=== PATIENT | female | born 1965 | race Caucasian/White ===

== ENCOUNTER 2017-04-14 19:47 | Emergency (ER) | payer OTHER ==
--- NOTE | 2017-04-14 21:56 | ED CLINICAL REPORT ---
Clinical Report - Physicians/Mid Levels [facility] [address] [place] [address] 04/14/2017 19:50 Patient: KURT CHASE Time Seen: 1998; upon arrival, initial patient contact, initial documentation, patient care assumed. Arrived- By private vehicle. Historian- patient. HISTORY OF PRESENT ILLNESS Chief Complaint: LOWER EXTREMITY PAIN and SWELLING. Not relieved by anything- worsened by walking. Severity is described as being mild. The quality is noted to be "pain". It is described as radiating to the right calf. This started about 3 days ago and is still present. It was abrupt in onset and has been constant. Symptoms located in the area of the right foot. The patient has had swelling, but not had redness. No difficulty walking. No bladder dysfunction, bowel dysfunction, sensory loss or motor loss. Patient denies an injury. Similar symptoms previously: None. Recent medical care: The patient was seen recently in a clinic. ( went to clinic travel pta, sent here to r/o clot). REVIEW OF SYSTEMS No chest pain or difficulty breathing. All systems otherwise negative, except as recorded above. PAST HISTORY See nurses notes. ( PROBLEMS: Depression. --20:01 Wendy Espino. ADDITIONAL SURGERIES: Left wrist surgey . --20:01 Wendy Espino.). SOCIAL HISTORY Former smoker. Occasional alcohol use. No drug use. No recent travel. Is a local resident. FAMILY HISTORY Other family history (blood clot) in first-degree relative (mother). ADDITIONAL NOTES The nursing notes have been reviewed with agreement regarding the chief complaint, HPI, ROS, PMH and patient medications and allergies. PHYSICAL EXAM Vital Signs: 04/14/2017 19:57 BP: 175/81. HR: 88. RR: 20. O2 saturation: 95%. Temp: 98.5 F. Pain level now: 3/10. Have been reviewed as normal and appear to be correct. Appearance: Alert. Oriented X3. No acute distress. Eyes: Pupils equal, round and reactive to light. Eyes normal inspection. Neck: Normal inspection. Neck supple. CVS: Normal heart rate and rhythm. Heart sounds normal. Respiratory: No respiratory distress. Breath sounds normal. Back: Normal inspection. No tenderness. ROM normal. Skin: Skin intact. Skin warm and dry. Normal skin color. Normal skin turgor. Extremities: Right foot: mild swelling. Neurovascular intact distally. (entire foot swollen). No erythema, tenderness, laceration, abrasion or ecchymosis. No puncture wound, foreign body or deformity. No localization of findings or limitation of weight bearing. Lower extremities exhibit normal ROM. Lower extremity edema present. Mild right-sided calf tenderness. Extremities otherwise negative. Gait: Abnormal gait. Gait not tested due to pain. Neuro: Oriented X 3. No motor deficit. No sensory deficit. LABS, X-RAYS, AND EKG Lower Extremity Sonography: Negative study. verbal report from [facility] [place], no dvt, normal US. Interpretation time: 2124. Laboratory Tests: Serum Qualitative: (AZAEL: 04/14/2017 20:15) ( [facility] 04/14/2017 20:36) Final results Test Result Flag Units (Reference) , SERUM NEGATIVE CBC w Diff: (AZAEL: 04/14/2017 20:15) ( [facility] [place]/14/2017 20:26) Final results Test Result Flag Units (Reference) WHITE BLOOD COUNT 6.7 K/uL (4.5-11.5) RED BLOOD COUNT 3.91 L M/uL (4.00-5.20) HEMOGLOBIN 12.1 gm/dL (12.0-16.0) HEMATOCRIT 35.6 L % (36.0-46.0) MEAN CELL VOLUME 91 fL (80-100) MEAN CORPUSCULAR HGB 31 pg (26-34) MEAN CORPUSCULAR HGB CONC 34 g/dL (31-37) RED CELL DISTRIBUTION WIDTH 13.2 % (11.6-14.8) PLATELET COUNT 326 K/uL (150-400) NEUTROPHIL % 59.5 % (50-75) LYMPH % 29.2 % (25-40) MONO % 7.7 % (3-14) EOSINOPHIL % 2.5 % (0-4) BASOPHIL % 1.1 % (0-2) [id number]: (AZAEL: 04/14/2017 20:15) ( MsgRcvd 04/14/2017 20:38) Final results Test Result Flag Units (Reference) D-DIMER QUANTITATIVE < 0.27 L ug/mLFEU (0.27-0.52) The primary value of this quantitative assay relates toits negative predictive value (i.e. exclusion) of pulmonaryembolism/deep vein thrombosis/DIC.Elevated levels of d-dimer may also occur with:, age, cancer, inflammation, liver disease,post-op, infection, hematoma, coronary disease, peripheralarteriopathy, bleeding disorders and thrombolytic treatment.Results should be correlated with other clinical andradiological data.Testing Methodology: Latex Immunoassay CMP: (AZAEL: 04/14/2017 20:15) ( MsgRcvd 04/14/2017 20:37) Final results Test Result Flag Units (Reference) GLUCOSE 121 H mg/dL (70-110) BUN 9 mg/dL (7-18) CREATININE 0.9 mg/dL (0.6-1.3) Estimated GFR >60 mL/min Estimated GFR- >60 mL/min Note: Persistent reduction over 3 months in eGFR<60 mL/min/1.73 m2 defines CKD. Patients with eGFR values>=60 mL/min/1.73 m2 may also have CKD if evidence ofpersistent proteinuria. Additional information may be foundat [email or web address]. SODIUM 141 mmol/L (136-145) POTASSIUM 3.6 mmol/L (3.5-5.1) CHLORIDE 106 mmol/L (98-107) CARBON DIOXIDE 23 mmol/L (21-32) CALCIUM 8.5 mg/dL (8.5-10.1) TOTAL PROTEIN 7.2 g/dL (6.4-8.2) ALBUMIN 3.7 g/dL (3.3-5.0) BILIRUBIN, TOTAL 0.5 mg/dL (0.0-1.0) ALKALINE PHOSPHATASE 74 U/L (46-116) AST (SGOT) 21 U/L (15-37) ALT (SGPT) 18 U/L (12-78) . PROGRESS AND PROCEDURES Peripheral IV Placement: Performed by me. Indication: others unavailable to perform. IV placed in the left forearm with an 18g angiocath with aseptic technique and good blood return; one attempt. Saline lock flushed with saline. Course of Care: 2049. awaiting US, eta 2114. Patient counseled in person regarding the patient's stable condition, test results and diagnosis. 21:42. Differential Diagnosis: Other possible considerations: pe, dvt, dependent edema, kidney failure, chf. Above considerations are based on history, physical exam, reassessment, laboratory data and other information. Differential diagnosis was discussed with patient. Disposition: Discharged home in good and unchanged condition (21:56). Condition: good and stable. CLINICAL IMPRESSION Left pedal edema secondary to unknown cause. No congestive heart failure, chronic venous insufficiency, cor pulmonale or hypoalbuminemia. INSTRUCTIONS Warnings: GENERAL WARNINGS: Return or contact your physician immediately if your condition worsens or changes unexpectedly, if not improving as expected, or if other problems arise. Specifically return if problem worsens. Follow-up: Follow up with your doctor in about three days as needed. Call for an appointment. Summary of care provided to patient. Understanding of the discharge instructions verbalized by patient. (Electronically signed by Sue Mcdaniel A.R.N.P. 04/14/2017 22:46)
--- NOTE | 2017-04-14 21:56 | ED CLINICAL REPORT ---
Clinical Report - Physicians/Mid Levels [facility] [address] [place] [address] 04/14/2017 19:50 Patient: KURT CHASE Time Seen: 1998; upon arrival, initial patient contact, initial documentation, patient care assumed. Arrived- By private vehicle. Historian- patient. HISTORY OF PRESENT ILLNESS Chief Complaint: LOWER EXTREMITY PAIN and SWELLING. Not relieved by anything- worsened by walking. Severity is described as being mild. The quality is noted to be "pain". It is described as radiating to the right calf. This started about 3 days ago and is still present. It was abrupt in onset and has been constant. Symptoms located in the area of the right foot. The patient has had swelling, but not had redness. No difficulty walking. No bladder dysfunction, bowel dysfunction, sensory loss or motor loss. Patient denies an injury. Similar symptoms previously: None. Recent medical care: The patient was seen recently in a clinic. ( went to clinic area captain, sent here to r/o clot). REVIEW OF SYSTEMS No chest pain or difficulty breathing. All systems otherwise negative, except as recorded above. PAST HISTORY See nurses notes. ( PROBLEMS: Depression. --20:01 Wendy Espino. ADDITIONAL SURGERIES: Left wrist surgey . --20:01 Wendy Espino.). SOCIAL HISTORY Former smoker. Occasional alcohol use. No drug use. No recent travel. Is a local resident. FAMILY HISTORY Other family history (blood clot) in first-degree relative (mother). ADDITIONAL NOTES The nursing notes have been reviewed with agreement regarding the chief complaint, HPI, ROS, PMH and patient medications and allergies. PHYSICAL EXAM Vital Signs: 04/14/2017 19:57 BP: 175/81. HR: 88. RR: 20. O2 saturation: 95%. Temp: 98.5 F. Pain level now: 3/10. Have been reviewed as normal and appear to be correct. Appearance: Alert. Oriented X3. No acute distress. Eyes: Pupils equal, round and reactive to light. Eyes normal inspection. Neck: Normal inspection. Neck supple. CVS: Normal heart rate and rhythm. Heart sounds normal. Respiratory: No respiratory distress. Breath sounds normal. Back: Normal inspection. No tenderness. ROM normal. Skin: Skin intact. Skin warm and dry. Normal skin color. Normal skin turgor. Extremities: Right foot: mild swelling. Neurovascular intact distally. (entire foot swollen). No erythema, tenderness, laceration, abrasion or ecchymosis. No puncture wound, foreign body or deformity. No localization of findings or limitation of weight bearing. Lower extremities exhibit normal ROM. Lower extremity edema present. Mild right-sided calf tenderness. Extremities otherwise negative. Gait: Abnormal gait. Gait not tested due to pain. Neuro: Oriented X 3. No motor deficit. No sensory deficit. LABS, X-RAYS, AND EKG Lower Extremity Sonography: Negative study. verbal report from [employer] [place], no dvt, normal US. Interpretation time: 2124. Laboratory Tests: Serum Qualitative: (AZAEL: 04/14/2017 20:15) ( [facility] 04/14/2017 20:36) Final results Test Result Flag Units (Reference) , SERUM NEGATIVE CBC w Diff: (AZAEL: 04/14/2017 20:15) ( [facility] [place] 04/14/2017 20:26) Final results Test Result Flag Units (Reference) WHITE BLOOD COUNT 6.7 K/uL (4.5-11.5) RED BLOOD COUNT 3.91 L M/uL (4.00-5.20) HEMOGLOBIN 12.1 gm/dL (12.0-16.0) HEMATOCRIT 35.6 L % (36.0-46.0) MEAN CELL VOLUME 91 fL (80-100) MEAN CORPUSCULAR HGB 31 pg (26-34) MEAN CORPUSCULAR HGB CONC 34 g/dL (31-37) RED CELL DISTRIBUTION WIDTH 13.2 % (11.6-14.8) PLATELET COUNT 326 K/uL (150-400) NEUTROPHIL % 59.5 % (50-75) LYMPH % 29.2 % (25-40) MONO % 7.7 % (3-14) EOSINOPHIL % 2.5 % (0-4) BASOPHIL % 1.1 % (0-2) [id number]: (AZAEL: 04/14/2017 20:15) ( MsgRcvd 04/14/2017 20:38) Final results Test Result Flag Units (Reference) D-DIMER QUANTITATIVE < 0.27 L ug/mLFEU (0.27-0.52) The primary value of this quantitative assay relates toits negative predictive value (i.e. exclusion) of pulmonaryembolism/deep vein thrombosis/DIC.Elevated levels of d-dimer may also occur with:, age, cancer, inflammation, liver disease,post-op, infection, hematoma, coronary disease, peripheralarteriopathy, bleeding disorders and thrombolytic treatment.Results should be correlated with other clinical andradiological data.Testing Methodology: Latex Immunoassay CMP: (AZAEL: 04/14/2017 20:15) ( MsgRcvd 04/14/2017 20:37) Final results Test Result Flag Units (Reference) GLUCOSE 121 H mg/dL (70-110) BUN 9 mg/dL (7-18) CREATININE 0.9 mg/dL (0.6-1.3) Estimated GFR >60 mL/min Estimated GFR- >60 mL/min Note: Persistent reduction over 3 months in eGFR<60 mL/min/1.73 m2 defines CKD. Patients with eGFR values>=60 mL/min/1.73 m2 may also have CKD if evidence ofpersistent proteinuria. Additional information may be foundat [email or web address].org. SODIUM 141 mmol/L (136-145) POTASSIUM 3.6 mmol/L (3.5-5.1) CHLORIDE 106 mmol/L (98-107) CARBON DIOXIDE 23 mmol/L (21-32) CALCIUM 8.5 mg/dL (8.5-10.1) TOTAL PROTEIN 7.2 g/dL (6.4-8.2) ALBUMIN 3.7 g/dL (3.3-5.0) BILIRUBIN, TOTAL 0.5 mg/dL (0.0-1.0) ALKALINE PHOSPHATASE 74 U/L (46-116) AST (SGOT) 21 U/L (15-37) ALT (SGPT) 18 U/L (12-78) . PROGRESS AND PROCEDURES Peripheral IV Placement: Performed by me. Indication: others unavailable to perform. IV placed in the left forearm with an 18g angiocath with aseptic technique and good blood return; one attempt. Saline lock flushed with saline. Course of Care: 2049. awaiting US, eta 2114. Patient counseled in person regarding the patient's stable condition, test results and diagnosis. 21:42. Differential Diagnosis: Other possible considerations: pe, dvt, dependent edema, kidney failure, chf. Above considerations are based on history, physical exam, reassessment, laboratory data and other information. Differential diagnosis was discussed with patient. Disposition: Discharged home in good and unchanged condition (21:56). Condition: good and stable. CLINICAL IMPRESSION Left pedal edema secondary to unknown cause. No congestive heart failure, chronic venous insufficiency, cor pulmonale or hypoalbuminemia. INSTRUCTIONS Warnings: GENERAL WARNINGS: Return or contact your physician immediately if your condition worsens or changes unexpectedly, if not improving as expected, or if other problems arise. Specifically return if problem worsens. Follow-up: Follow up with your doctor in about three days as needed. Call for an appointment. Summary of care provided to patient. Understanding of the discharge instructions verbalized by patient. (Electronically signed by Sue Mcdaniel A.R.N.P. 04/14/2017 22:46)
--- NOTE | 2017-04-14 21:57 | ED NURSING NOTES ---
Clinical Report - Nurses [facility] [address] [place] [address] 04/14/2017 19:50 Patient: KURT CHASE TRIAGE Triage time 19:50 Apr 14 2017. Acuity: LEVEL 3. Chief Complaint: RIGHT LOWER EXTREMITY PAIN and SWELLING. SEPSIS SCREEN: Sepsis Screen: negative. Negative (no infection suspected/documented). LUANA COMA SCORE: [place] Coma Scale: 15- eyes open spontaneously (4); best verbal response- oriented x 4 (5); best motor response- obeys commands (6). --20:03 Wendy Espino 19:57 04/14/17. BP: 175/81. HR: 88. RR: 20. O2 saturation: 95% on room air. Temp: 98.5 F (oral). Pain level now: 12/23. --20:03 Wendy Espino. Weight: 79.8 kg stated. Height/Length: 66 inches Per Patient. BMI: 28.4. --20:01 Wendy Espino. Medications Sertraline HCl Oral. --20:00 Wendy Espino Progesterone Micronized Oral. --20:01 Wendy Espino [place] . --20:01 Wendy Espino. Medication/allergy information source: the patient. --20:03 Wendy Espino. Allergies Prozac. --20:01 Wendy Espino. History Arrived by private vehicle. Historian: patient. Unaccompanied. No injury occurred. This occurred (3 days). It is described as radiating to the right lower extremity and calf. ( Patient reported she notices some swelling in her right foot and ankle. Patient reports pain that started today in her calf. She has been working with her PCP regarding her blood pressure. She was seen at [facility] today and told to come in for possible blood clot. She denies recent travel. 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 PAST MEDICAL HX: Immunizations: up-to-date. Last normal menstrual period now. SOCIAL HX: Former smoker, end date 2010. Alcohol use; consumes beer and one glass of wine. No drug use. No infectious disease exposure. ABUSE ASSESSMENT: No report of abuse. FALL RISK ASSESSMENT: Fall risk assessment completed. No fall risk identified. NUTRITIONAL RISK ASSESSMENT: The nutritional risk assessment revealed no deficiencies. FUNCTIONAL ASSESSMENT: Functional assessment: no impairments noted. LEARNING NEEDS ASSESSMENT: The learning needs assessment revealed no barriers. SKIN INTEGRITY ASSESSMENT: Skin integrity risk assessment completed. No skin integrity risk identified. --20:03 Wendy Espino. PROBLEMS: Depression. --20:01 Wendy Espino. ADDITIONAL SURGERIES: Left wrist surgey . --20:01 Wendy Espino. Interventions ID band on patient. To treatment room. --20:03 Wendy Espino. PHYSICAL ASSESSMENT Ambulatory to room. Patient gowned. GENERAL / NEURO / PSYCH: Oriented X 4. Alert. Appears in no acute distress. EXTREMITIES: Increased with dorsiflexion right-sided calf tenderness. Bilateral 1+ edema of the lower extremities involving both feet and both ankles. Right ankle: swelling and erythema. SKIN: Skin intact. Skin is warm and dry. --20:04 Wendy Espino. NURSING PROGRESS NOTES air sampling and monitoring, pulse oximeter and NIBP monitor placed on patient; monitor alarms on. Extremity elevated. Patient gowned. Reassurance given to the patient. Two patient identifiers checked. Call light placed in reach. Side rails up x 1. Bed placed in lowest position. Brakes of bed on. Patient ready for evaluation- chart flagged and ED physician notified. --20:04 Wendy Espino 20:11 04/14/2017 Site #1 started via IV in the left forearm with an 18g angiocath, with aseptic technique; one attempt. Blood drawn: rainbow set. Labeled in the presence of the patient and sent to the lab. Saline lock flushed with 10 mL saline. --20:11 Wendy Espino Patient ID band checked for patient name and birthdate: patient confirmed. Blood samples drawn from the left forearm peripheral IV site with Vacutainer by nurse ; labeled in presence of the patient and sent to lab: rainbow set. Line flushed with 10 mL normal saline post blood draw. --20:12 Wendy Espino The patient reports no complaints and she is resting quietly. --20:58 Wendy Espino 20:58 04/14/17. BP: 157/92. HR: 81. RR: 20. O2 saturation: 96% on room air. --20:58 Wendy Espino 21:18 04/14/17. BP: 167/90. HR: 81. RR: 20. O2 saturation: 96% on room air. --21:18 Wendy Espino ( ultrasound at bedside). --21:34 Wendy Espino. DISPOSITION / DISCHARGE 22:15 04/14/17. BP: 149/82. HR: 80. RR: 20. O2 saturation: 96% on room air. Temp: 98.6 F (oral). Pain level now: 11/25. --22:41 Wendy Espino 22:00 04/14/2017 Site #1 removed upon discharge. Catheter intact. Bandaid applied. --22:42 Wendy Espino 22:15 04/14/17. Condition at departure: stable. The goals identified in the patient's plan of care were met. No learning barriers present. Discharge instructions provided and reviewed with the patient. Reviewed need for increased fluid intake. Patient verbalized understanding. Written instructions provided in Yi. ( Follow up with your PCP in three days as needed. Return if your symptoms do not improve. Elevate your legs while sitting. Reviewed calf exercised while sitting. Patient verbalized understanding and had no additional questions at this time.). The patient was discharged by the nurse practitioner. She was discharged home and unaccompanied at time of discharge. She left the Emergency Department ambulatory and via private vehicle. Patient driving. FALL RISK ASSESSMENT: Fall risk assessment completed. No fall risk identified. --22:41 Wendy Espino. Locked/Released at 04/14/2017 22:42 by Wendy Espino,
--- NOTE | 2017-04-14 21:57 | ED NURSING NOTES ---
Clinical Report - Nurses [facility] [address] [place] [address] 04/14/2017 19:50 Patient: KURT CHASE TRIAGE Triage time 19:50 Apr 14 2017. Acuity: LEVEL 3. Chief Complaint: RIGHT LOWER EXTREMITY PAIN and SWELLING. SEPSIS SCREEN: Sepsis Screen: negative. Negative (no infection suspected/documented). LUANA COMA SCORE: [place] Coma Scale: 15- eyes open spontaneously (4); best verbal response- oriented x 4 (5); best motor response- obeys commands (6). --20:03 Wendy Espino 19:57 04/14/17. BP: 175/81. HR: 88. RR: 20. O2 saturation: 95% on room air. Temp: 98.5 F (oral). Pain level now: 12/23. --20:03 Wendy Espino. Weight: 79.8 kg stated. Height/Length: 66 inches Per Patient. BMI: 28.4. --20:01 Wendy Espino. Medications Sertraline HCl Oral. --20:00 Wendy Espino Progesterone Micronized Oral. --20:01 Wendy Espino [place] . --20:01 Wendy Espino. Medication/allergy information source: the patient. --20:03 Wendy Espino. Allergies Prozac. --20:01 Wendy Espino. History Arrived by private vehicle. Historian: patient. Unaccompanied. No injury occurred. This occurred (3 days). It is described as radiating to the right lower extremity and calf. ( Patient reported she notices some swelling in her right foot and ankle. Patient reports pain that started today in her calf. She has been working with her PCP regarding her blood pressure. She was seen at [facility] today and told to come in for possible blood clot. She denies recent travel. 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 PAST MEDICAL HX: Immunizations: up-to-date. Last normal menstrual period now. SOCIAL HX: Former smoker, end date 2010. Alcohol use; consumes beer and one glass of wine. No drug use. No infectious disease exposure. ABUSE ASSESSMENT: No report of abuse. FALL RISK ASSESSMENT: Fall risk assessment completed. No fall risk identified. NUTRITIONAL RISK ASSESSMENT: The nutritional risk assessment revealed no deficiencies. FUNCTIONAL ASSESSMENT: Functional assessment: no impairments noted. LEARNING NEEDS ASSESSMENT: The learning needs assessment revealed no barriers. SKIN INTEGRITY ASSESSMENT: Skin integrity risk assessment completed. No skin integrity risk identified. --20:03 Wendy Espino. PROBLEMS: Depression. --20:01 Wendy Espino. ADDITIONAL SURGERIES: Left wrist surgey . --20:01 Wendy Espino. Interventions ID band on patient. To treatment room. --20:03 Wendy Espino. PHYSICAL ASSESSMENT Ambulatory to room. Patient gowned. GENERAL / NEURO / PSYCH: Oriented X 4. Alert. Appears in no acute distress. EXTREMITIES: Increased with dorsiflexion right-sided calf tenderness. Bilateral 1+ edema of the lower extremities involving both feet and both ankles. Right ankle: swelling and erythema. SKIN: Skin intact. Skin is warm and dry. --20:04 Wendy Espino. NURSING PROGRESS NOTES monitoring tech, pulse oximeter and NIBP monitor placed on patient; monitor alarms on. Extremity elevated. Patient gowned. Reassurance given to the patient. Two patient identifiers checked. Call light placed in reach. Side rails up x 1. Bed placed in lowest position. Brakes of bed on. Patient ready for evaluation- chart flagged and ED physician notified. --20:04 Wendy Espino 20:11 04/14/2017 Site #1 started via IV in the left forearm with an 18g angiocath, with aseptic technique; one attempt. Blood drawn: rainbow set. Labeled in the presence of the patient and sent to the lab. Saline lock flushed with 10 mL saline. --20:11 Wendy Espino Patient ID band checked for patient name and birthdate: patient confirmed. Blood samples drawn from the left forearm peripheral IV site with Vacutainer by nurse ; labeled in presence of the patient and sent to lab: rainbow set. Line flushed with 10 mL normal saline post blood draw. --20:12 Wendy Espino The patient reports no complaints and she is resting quietly. --20:58 Wendy Espino 20:58 04/14/17. BP: 157/92. HR: 81. RR: 20. O2 saturation: 96% on room air. --20:58 Wendy Espino 21:18 04/14/17. BP: 167/90. HR: 81. RR: 20. O2 saturation: 96% on room air. --21:18 Wendy Espino ( ultrasound at bedside). --21:34 Wendy Espino. DISPOSITION / DISCHARGE 22:15 04/14/17. BP: 149/82. HR: 80. RR: 20. O2 saturation: 96% on room air. Temp: 98.6 F (oral). Pain level now: 11/25. --22:41 Wendy Espino 22:00 04/14/2017 Site #1 removed upon discharge. Catheter intact. Bandaid applied. --22:42 Wendy Espino 22:15 04/14/17. Condition at departure: stable. The goals identified in the patient's plan of care were met. No learning barriers present. Discharge instructions provided and reviewed with the patient. Reviewed need for increased fluid intake. Patient verbalized understanding. Written instructions provided in Serbian. ( Follow up with your PCP in three days as needed. Return if your symptoms do not improve. Elevate your legs while sitting. Reviewed calf exercised while sitting. Patient verbalized understanding and had no additional questions at this time.). The patient was discharged by the nurse practitioner. She was discharged home and unaccompanied at time of discharge. She left the Emergency Department ambulatory and via private vehicle. Patient driving. FALL RISK ASSESSMENT: Fall risk assessment completed. No fall risk identified. --22:41 Wendy Espino. Locked/Released at 04/14/2017 22:42 by Wendy Espino,
--- NOTE | 2017-04-14 21:57 | ED ORDER SUMMARY ---
..... Patient: KURT CHASE OrderSheet [facility] VisitID: [id number] [place] [address] 51y, F Registration Date/Time: 04/14/2017 ORDER SHEET Weight: 79.8 kg (stated) Allergies: Prozac GENERAL ORDERS: US Venous Right Urgent (20:11 04/14/2017 HBivens A.R.N.P.) (Ack 20:13 AMcQuoid ER Tech1) (22:06 HSoule) CBC w Diff Urgent (20:11 04/14/2017 HBivens A.R.N.P.) (Ack 20:13 AMcQuoid ER Tech1) (20:53 HSoule) CMP Urgent (20:04/14/2017 HBivens A.R.N.P.) (Ack 20:13 AMcQuoid ER Tech1) (20:53 HSoule) D-Dimer Urgent (20:11 04/14/2017 HBivens A.R.N.P.) (Ack 20:13 AMcQuoid ER Tech1) (20:53 HSoule) Serum Qualitative Urgent (20:11 04/14/2017 HBivens A.R.N.P.) (Ack 20:13 AMcQuoid ER Tech1) (20:53 HSoule) MEDICATION ORDERS: IV FLUIDS: IV Saline Lock (20:11 04/14/2017 HBivens A.R.N.P.) (20:12 HSoule) ORDER SHEET NOTES: [Electronically signed by Wendy Espino (22:42 04/14/2017)] [Electronically signed by Sue Mcdaniel A.R.N.P. (22:46 04/14/2017)] [Electronically locked/signed by Wendy Espino (22:42 04/14/2017)]
--- NOTE | 2017-04-14 21:57 | ED ORDER SUMMARY ---
..... Patient: KURT CHASE OrderSheet [facility] VisitID: [id number] [place] [address] 51y, F Registration Date/Time: 04/14/2017 ORDER SHEET Weight: 79.8 kg (stated) Allergies: Prozac GENERAL ORDERS: US Venous Right Urgent (20:11 04/14/2017 HBivens A.R.N.P.) (Ack 20:13 AMcQuoid ER Tech1) (22:06 HSoule) CBC w Diff Urgent (20:11 04/14/2017 HBivens A.R.N.P.) (Ack 20:13 AMcQuoid ER Tech1) (20:53 HSoule) CMP Urgent (20:04/14/2017 HBivens A.R.N.P.) (Ack 20:13 AMcQuoid ER Tech1) (20:53 HSoule) D-Dimer Urgent (20:11 04/14/2017 HBivens A.R.N.P.) (Ack 20:13 AMcQuoid ER Tech1) (20:53 HSoule) Serum Qualitative Urgent (20:11 04/14/2017 HBivens A.R.N.P.) (Ack 20:13 AMcQuoid ER Tech1) (20:53 HSoule) MEDICATION ORDERS: IV FLUIDS: IV Saline Lock (20:11 04/14/2017 HBivens A.R.N.P.) (20:12 HSoule) ORDER SHEET NOTES: [Electronically signed by Wendy Espino (22:42 04/14/2017)] [Electronically signed by Sue Mcdaniel A.R.N.P. (22:46 04/14/2017)] [Electronically locked/signed by Wendy Espino (22:42 04/14/2017)]
--- NOTE | 2017-04-14 22:30 | DIAGNOSTIC IMAGING REPORT ---
PROCEDURE: US VENOUS - RIGHT EXT INDICATION: SWELLING TECHNIQUE: Duplex sonography of the deep venous system in the right lower extremity was performed. Compression and augmentation techniques were used. COMPARISON: None. FINDINGS: Each interrogated segment of deep vein from the common femoral vein into the calf veins demonstrates normal compressibility, augmentation and/or color Doppler flow without filling defect. Trace subcutaneous edema in the area of lateral ankle swelling. No thrombophlebitis. IMPRESSION: 1. No deep venous thrombosis in the right lower extremity.
--- NOTE | 2017-04-14 22:46 | ED MAR SUMMARY ---
..... Medication Administration Record [facility] [address] [place] [place] [id number] Patient: KURT CHASE Visit ID: [id number] 51y, F Weight: 79.8 kg Height/Length: 66 in BMI: 28.4 ALLERGIES: Prozac
--- NOTE | 2017-04-14 22:46 | ED DISCHARGE INSTRUCTIONS ---
Patient: KURT CHASE General Instructions [facility] VisitID: [id number] [place] [address] 51y, F Registration Date/Time: 04/14/2017 Left pedal edema secondary to unknown cause. No congestive heart failure, chronic venous insufficiency, cor pulmonale or hypoalbuminemia. INSTRUCTIONS Warnings: GENERAL WARNINGS: Return or contact your physician immediately if your condition worsens or changes unexpectedly, if not improving as expected, or if other problems arise. Specifically return if problem worsens. Follow-up: Follow up with your doctor in about three days as needed. Call for an appointment. Summary of care provided to patient. Understanding of the discharge instructions verbalized by patient. ADDITIONAL INFORMATION Leg Swelling (Unilateral) Swelling of the arms, feet, ankles, and legs is called edema. It is due to excess fluid collecting in the tissues. Because of gravity, excess fluid in the body settles to the lowest part. That is why the legs and feet are most affected. Some of the causes for swelling in one leg only include: Foot or leg infection Venous insufficiency (congestion of blood in the deep veins of the legs) Varicose veins (dilated veins of the lower leg) Garters or anything that constricts the leg Insect bite or sting on the foot or leg Injury or recent surgery on the foot or leg Blood clot in the deep veins of the leg Medical treatment will depend on the cause of your swelling. Home Care: Do not wear garments that constrict your legs (such as garters). Elevate your legs while lying or sitting. Take any medicines as directed. If infection, injury, or recent surgery is the cause for your swelling, stay off your legs as much as possible until symptoms improve. If your doctor says that venous insufficiency or varicose veins is the cause of leg swelling, do not sit or store standards associate one place for long periods of time. Take breaks and walk around every few hours. Brisk walking is a good exercise and helps circulate the congested bloodin your leg. Talk to your doctor about the use of support stockings to prevent daytime leg swelling. Follow Up with your doctor or as advised by our staff. Get Prompt Medical Attention if any of the following occur: Shortness of breath or chest pain with breathing Coughing up blood Increased swelling, warmth or redness of the leg, ankle or foot Calf pain Fever of 100.4F (38C) or higher, or as directed by your healthcare provider Weakness, dizziness or fainting You have been given the following additional information: Peripheral Edema, Unilateral (Electronically signed by Sue Mcdaniel A.R.N.P. 04/14/2017 22:46)
--- NOTE | 2017-04-14 22:46 | ED DISCHARGE INSTRUCTIONS ---
Patient: KURT CHASE General Instructions [facility] VisitID: [id number] [place] [address] 51y, F Registration Date/Time: 04/14/2017 Left pedal edema secondary to unknown cause. No congestive heart failure, chronic venous insufficiency, cor pulmonale or hypoalbuminemia. INSTRUCTIONS Warnings: GENERAL WARNINGS: Return or contact your physician immediately if your condition worsens or changes unexpectedly, if not improving as expected, or if other problems arise. Specifically return if problem worsens. Follow-up: Follow up with your doctor in about three days as needed. Call for an appointment. Summary of care provided to patient. Understanding of the discharge instructions verbalized by patient. ADDITIONAL INFORMATION Leg Swelling (Unilateral) Swelling of the arms, feet, ankles, and legs is called edema. It is due to excess fluid collecting in the tissues. Because of gravity, excess fluid in the body settles to the lowest part. That is why the legs and feet are most affected. Some of the causes for swelling in one leg only include: Foot or leg infection Venous insufficiency (congestion of blood in the deep veins of the legs) Varicose veins (dilated veins of the lower leg) Garters or anything that constricts the leg Insect bite or sting on the foot or leg Injury or recent surgery on the foot or leg Blood clot in the deep veins of the leg Medical treatment will depend on the cause of your swelling. Home Care: Do not wear garments that constrict your legs (such as garters). Elevate your legs while lying or sitting. Take any medicines as directed. If infection, injury, or recent surgery is the cause for your swelling, stay off your legs as much as possible until symptoms improve. If your doctor says that venous insufficiency or varicose veins is the cause of leg swelling, do not sit or council on aging director one place for long periods of time. Take breaks and walk around every few hours. Brisk walking is a good exercise and helps circulate the congested bloodin your leg. Talk to your doctor about the use of support stockings to prevent daytime leg swelling. Follow Up with your doctor or as advised by our staff. Get Prompt Medical Attention if any of the following occur: Shortness of breath or chest pain with breathing Coughing up blood Increased swelling, warmth or redness of the leg, ankle or foot Calf pain Fever of 100.4F (38C) or higher, or as directed by your healthcare provider Weakness, dizziness or fainting You have been given the following additional information: Peripheral Edema, Unilateral (Electronically signed by Sue Mcdaniel A.R.N.P. 04/14/2017 22:46)
--- NOTE | 2017-04-14 22:46 | ED MAR SUMMARY ---
..... Medication Administration Record [facility] [address] [place], [place] [id number] Patient: KURT CHASE Visit ID: [id number] 51y, F Weight: 79.8 kg Height/Length: 66 in BMI: 28.4 ALLERGIES: Prozac
--- NOTE | 2017-04-14 22:46 | ED MED RECONCILIATION SUMMARY ---
Patient: KURT CHASE Medication Reconciliation Report [facility] VisitID: [id number] [address] [place] [address] 51y, F Registration Date/Time: 04/14/2017 Weight: 79.8 kg Height/Length: 66 in. BMI: 28.4 ALLERGIES: Prozac The patient's Home Medications are listed below: THE FOLLOWING MEDICATIONS NEED TO BE RECONCILED: Estrodile Progesterone Micronized Oral Sertraline HCl Oral The source(s) of the original Home Medication information: patient The following Medications were given to the patient in the Emergency Department: None. The following Medications were prescribed to the patient: None.
--- NOTE | 2017-04-14 22:46 | ED MED RECONCILIATION SUMMARY ---
Patient: KURT CHASE Medication Reconciliation Report [facility] VisitID: [id number] [address] [place] [address] 51y, F Registration Date/Time: 04/14/2017 Weight: 79.8 kg Height/Length: 66 in. BMI: 28.4 ALLERGIES: Prozac The patient's Home Medications are listed below: THE FOLLOWING MEDICATIONS NEED TO BE RECONCILED: [place]rod[place] Progesterone Micronized Oral Sertraline HCl Oral The source(s) of the original Home Medication information: patient The following Medications were given to the patient in the Emergency Department: None. The following Medications were prescribed to the patient: None.
== END 2017-04-14 22:15 | disposition home or self-care (01) ==
LOC: ED SRH 19:47
DX: R60.0 Localized edema (principal); Z88.8 Allergy status to other drugs, medicaments and biological substances